=== PATIENT | female | born 1980 | race Caucasian/White ===

== ENCOUNTER 2023-08-19 15:04 | Emergency (ER) | payer OTHER ==
[~2023-08-19] VITALS: Ht 162.5 cm; Wt 94.8 kg
[~2023-08-19 15:04] MED LIST: AMOXICILLIN500 M2 PO; DELTASONE20 M1 PO; ZYRTEC10 MG PO
[2023-08-19 15:14] VITALS: BP 120/72
[2023-08-19] MEDS ORDERED: CEPHALEXIN500 M1 PO (15:36)
== END 2023-08-19 15:57 | disposition home or self-care (01) ==
LOC: ED 15:04
DX: S61.217A Laceration without foreign body of left little finger without damage to nail, initial encounter (principal); Z88.6 Allergy status to analgesic agent; Z88.8 Allergy status to other drugs, medicaments and biological substances; W26.0XXA Contact with knife, initial encounter; Y93.89 Activity, other specified; Y92.89 Other specified places as the place of occurrence of the external cause; Y99.0 Civilian activity done for income or pay